=== PATIENT | female | born 1995 ===

== ENCOUNTER 2017-10-26 09:46 | Emergency (ER) | payer OTHER ==
--- NOTE | 2017-10-26 11:11 | RAD ---
PA AND LATERAL CHEST: Indication: Cough, yellow sputum and congestion for two days. FINDINGS: No airspace consolidation, pleural effusion, or pneumothorax is evident. There are low lung volumes. No acute osseous abnormality is evident. IMPRESSION: No acute abnormality. POS: [facility]
== END 2017-10-26 11:49 | disposition home or self-care (01) ==
LOC: ERS 09:46
DX: J06.9 Acute upper respiratory infection, unspecified (principal); R03.0 Elevated blood-pressure reading, without diagnosis of hypertension
CPT/HCPCS: 71046; 87081; 87430

== ENCOUNTER 2019-04-06 17:11 | Emergency (ER) | payer OTHER ==
[2019-04-06] MEDS ORDERED: Ondansetron ODT 8 MG TAB ONE (17:25)
== END 2019-04-06 17:56 | disposition home or self-care (01) ==
LOC: ERS 17:11
DX: R11.2 Nausea with vomiting, unspecified (principal); R19.7 Diarrhea, unspecified; R10.13 Epigastric pain
CPT/HCPCS: 99283

== ENCOUNTER 2020-11-02 10:37 | Emergency (ER) | payer OTHER | END 2020-11-02 12:32 | disposition home or self-care (01) | LOC: ERS 10:37 | DX: J02.9 Acute pharyngitis, unspecified (principal); I10 Essential (primary) hypertension; Z79.899 Other long term (current) drug therapy | CPT/HCPCS: 87081; 87430 ==